=== PATIENT | female | born 1960 | race Caucasian/White ===

== ENCOUNTER 2021-04-02 20:50 | Emergency (ER) | payer SELFPAY ==
[2021-04-02 20:57] VITALS: BP 148/83; PULSE 86; TEMP 98.9; BMI 30.9
== END 2021-04-02 23:36 | disposition home or self-care (01) ==
LOC: FER 20:50
DX: S60.211A Contusion of right wrist, initial encounter (principal)
CPT/HCPCS: 73110-TC-RT-FY; 99284-25